=== PATIENT | male | born 1960 | race Caucasian/White ===

== ENCOUNTER → 2017-02-12 12:21 | Outpatient (CLI) | payer BC ==
[2016-09-25 08:00] VITALS: BMI 49.0
[~2017-02-12 12:21] MED LIST: ALDACTONE25 MG PO; ASPIRIN81 MG PO; CLARITIN10 MG/TAB PO; CYCLOBENZAPRINE10 MG PO; FUROSEMIDE40 MG PO; HEMOCYTE-F TABL1 TAB PO; IMDUR60 MG PO; K-DUR20 MEQ PO; KLOR-CON M2020 MEQ PO; NORCO 10/325 TA1 TA1 PO; NORCO 7.5/325 T1 TA1 PO; PLAVIX75 MG PO; PRAVACHOL20 MG PO; TOPROL XL50 MG PO; ZYLOPRIM100 MG PO
== END | disposition home or self-care (01) ==
LOC: D.US 01-15 13:30
DX: I65.23 Occlusion and stenosis of bilateral carotid arteries (principal)

== ENCOUNTER 2017-09-18 15:47 | Inpatient (IN) | payer BC ==
[~2017-09-18] VITALS: Ht 172.7 cm; Wt 150.0 kg
--- NOTE | ~2017-09-18 | HEMODYNAMI ---
PATIENT:CORDELL ELIZALDE MEDICAL RECORD: [id number] : 60 LOCATION:[facility] D.2[facility] [id number] ADMISSION DATE: 09/18/17 Generatedon:09/20/201712:23 Patient name: CORDELL ELIZALDE Patient #: [id number] SSN: D OB: 1960 Date of study: 09/20/2017 Page: Of Hemodynamic Procedure Report Patient Data Patient Demographics Procedure consent was obtained First Name: CORDELL Gender: Male Last Name: : 1960 Middle Initial: JOURDAN Age: 57 year(s) Patient #: [id number] Race: Unknown Additional ID: [id number] Contact details Address: [address] [address] State: [place] City: [place] Zip code: [address] Past Medical History Allergies Allergen Reaction Date Comments Reported Other allergy 09/20/2017 PCN, Pravastatin Admission Admission Data Admission Date: 09/18/2017 Admission Time: 15:47 Room #: 2122 Lab Results Lab Result Date: 09/18/2017 Lab Result Time: 16:45 Biochemistry Name Units Result Min Max BUN mg/dl 14 --(--*-)-- 7 18 Creatinine mg/dl 0.8 --(-*--)-- 0.6 1.3 CBC Name Units Result Min Max Hematocrit % 43.8 --(*---)-- 42 54 Hemoglobin g/dl 14.6 --(-*--)-- 13.5 17.5 Procedure Procedure Types Cath Procedure Diagnostic Procedure LHC LHC w/Coronaries w/Grafts Miscellaneous Procedures Moderate Sedation up to 15 minutes Procedure Description Procedure Date Procedure Date: 09/20/2017 Procedure Start Time: 12:10 Procedure End Time: 12:22 Procedure Staff Name Function Guru Pichardo MD Performing Physician Ricardo Harrison RT Monitor Cierra Mathias RT Scrub Rio Edgar RN Nurse Vickie Henson RN Computer Art Instructor Procedure Data Cath Procedure Fluoroscopy Diagnostic fluoroscopy Total fluoroscopy Time: 1.2 time: 1.2 min min Diagnostic fluoroscopy Total fluoroscopy dose: 234 dose: 234 mGy mGy Contrast Material Contrast Material Type Amount (ml) Isovue 300 38 Entry Location Entry Primary Successful Side Size Upsize Upsize Entry Closure Succes sful Closure Location (Fr) 1 (Fr) 2 (Fr) Remarks Device Remarks Femoral Right 5 Fr Exoseal artery Estimated blood loss: 5 ml Diagnostic catheters Device Type Used For End Catheter Placement MULTIPACK Pigtail 5 Fr Procedure catheter MULTIPACK 3DRC 5Fr Procedure catheter DIAGNOSTIC AR 2 MOD 5 Fr Procedure catheter ([id number]) Procedure Complications No complications Procedure Medications Medication Administration Route Dosage 0.9% NaCl I.V. 100 ml/hr Oxygen NC 2 l/min Heparin Flush Bag added to field 2 bags (1000units/500ml NS) Lidocaine 2% added to field 20 Versed I.V. 1 mg Fentanyl I.V. 50 mcg Hemodynamics Rest HGB: 14.6 (g/dl) Heart Rate: 54 (bpm) Snapshots Pre Cath Intra NCS Post Cath Vital Signs Time Heart Resp SPO2 etCO2 NIBP (mmHg) Rhythm Pain Sedation Rate (ipm) (%) (mmHg) Status Level (bpm) 11:55:30 56 14 90 47.5 137/85(100) NSR 0 (11) 10(A) , No pain 12:00:27 56 18 83 42.9 124/78(93) NSR 0 (11) 10(A) , No pain 12:05:24 56 17 92 46.7 131/68(97) NSR 0 (11) 10(A) , No pain 12:10:19 57 15 94 49.7 142/86(110) NSR 0 (11) 10(A) , No pain 12:15:16 53 14 95 39.2 145/94(106) NSR 0 (11) 10(A) , No pain 12:20:15 58 8 94 41.4 Measuring NSR 0 (11) 10(A) , No pain 12:20:17 58 8 94 37.6 130/81(105) NSR 0 (11) 10(A) , No pain Medications Time Medication Route Dose Verified Delivered Reason Notes Effe ctiveness by by 11:52:13 0.9% NaCl I.V. 100 Rio Rio Per ml/hr Herve Edgar physician RN RN 11:52:25 Oxygen NC 2 Iro Rio Per l/min Herve Edgar physician RN RN 11:52:41 Heparin Flush added 2 Rio Rio used for Bag to bags Lorigan Herve procedure (1000units/500ml field RN RN NS) 11:53:00 Lidocaine 2% added 20ml Rio Rio for local to vial Lorigan Lorigan anesthetic field RN RN 12:07:59 Versed I.V. 1 mg Rio Rio for Lorigan Lorigan sedation RN RN 12:08:20 Fentanyl I.V. 50 Rio Rio for mcg Lorigan Lorigan sedation RN belt loop maker Log Time Note 11:39:38 Informed consent obtained and on chart 11:40:20 Vickie Henson RN sent for patient. Start room use. 11:41:28 Time tracking: Regular hours 11:41:34 Plan of Care:Hemodynamics will remain stable., Cardiac rhythm will remain stable., Comfort level will be maintained., Respiratory function will remain adequate., Patient/ family verbilizes understanding of procedure., Procedure tolerated without complication., Recovers from procedure without complications.. 11:42:36 Patient received from Med II to CCL 1 Alert and oriented. Tansferred to table in Supine position. 11:42:37 Warm blankets applied, and jak hugger turned on for patient comfort. 11:42:38 Correct patient and procedure confirmed by team. 11:42:39 ECG and BP/O2 sat monitors applied to patient. 11:42:48 H&P Date Dictated: 09/18/2017 Within 30 days and on chart.. 11:44:11 Lab Result : BUN 14 mg/dl 11:44:11 Lab Result : Hemoglobin 14.6 g/dl 11:44:11 Lab Result : Creatinine 0.8 mg/dl 11:44:11 Lab Result : Hematocrit 43.8 % 11:44:13 Lab results completed and on chart. 11:44:20 Pre-procedure instructions explained to patient. 11:44:21 Pre-op teaching completed and patient verbalized understanding. 11:45:32 Family in waiting room. 11:45:35 Patient NPO since Midnight. 11:47:28 Patient allergic to Other allergyPCN, Pravastatin 11:47:34 Is the patient allergic to Iodine/contrast media? No. 11:47:38 Is patient on blood thinner?No 11:47:39 Patient diabetic? No. 11:47:43 Previous problem with sedation/anesthesia? No ? 11:47:44 Snore? Yes 11:47:45 Sleep apnea? Yes 11:47:46 Deviated septum? No 11:47:47 Opens mouth fully? Yes 11:47:48 Sticks out tongue? Yes 11:47:49 Airway obstruction? No ? 11:47:52 Dentures? Yes Out 11:52:13 0.9% NaCl 100 ml/hr I.V. was administered by Rio Edgar RN; Per physician; 11:52:25 Oxygen 2 l/min NC was administered by Rio Edgar RN; Per physician; 11:52:41 Heparin Flush Bag (1000units/500ml NS) 2 bags added to field was administered by Rio Edgar RN; used for procedure; 11:53:00 Lidocaine 2% 20ml vial added to field was administered by Rio Edgar RN; for local anesthetic; 11:53:04 Vital chart was started 11:56:47 Baseline sample Acquired. 11:56:57 Rhythm: sinus rhythm 11:57:00 Full Disclosure recording started 11:58:03 Pre procedure: right dorsailis pedis pulse 1+ Palpable, but thready & weak; easily obliterated 11:58:04 Patient pain scale 0/10 ?. 11:58:10 IV patent on arrival in right hand with 0.9% NaCl at KVO. 11:58:14 Lab results completed and on chart. 11:58:23 Right groin area was prepped with chlora-prep and draped in sterile fashion 11:58:25 Alarms reviewed by R. N. 11:58:26 Sharps counted by scrub and verified by R.N. 11:58:39 Use device set Femoral Dx 11:58:45 PERCUTANEOUS ENTRY 19GA needle opened to sterile field. 11:58:46 Tegaderm 4 x 4 (1626W) opened to sterile field. 11:58:49 ACIST Syringe (21251) opened to sterile field. 11:58:49 Bag Decanter () opened to sterile field. 11:58:50 Medline Cath Pack ([id number]) opened to sterile field. 11:58:51 Terumo 5Fr Madison Sheath opened to sterile field. 11:58:51 St Trent 260cm J .035 wire opened to sterile field. 11:58:54 ACIST Hand Control (46031) opened to sterile field. 11:58:54 ACIST Manifold (72968) opened to sterile field. 11:58:56 DIAGNOSTIC Multipack 5Fr catheter set ([id number]) opened to sterile field. 11:59:35 Zero performed for pressure channel P1 12:03:14 Physician paged 12:07:16 Physician arrived 12::17 --------ALL STOP TIME OUT------ 12:07:17 Final Timeout: patient, procedure, and site verified with staff and physician. All members of the team are in agreement. 12:07:19 Right groin site verified by team. 12:07:22 Physical assessment completed. ASA score P 2 - A patient with mild systemic disease as per Guru Pichardo MD. 12:07:30 Sedation plan: IV Moderate Sedation Medication:Versed, Fentanyl 12:07:59 Versed 1 mg I.V. was administered by Rio Edgar RN; for sedation; 12:08:20 Fentanyl 50 mcg I.V. was administered by Rio Edgar RN; for sedation; 12:10:52 Procedure started. 12:10:55 Local anesthetic to right femoral artery with Lidocaine 2% by Guru Pichardo MD.INITIAL ACCESS ONLY 12:11:03 A 5 Fr sheath was inserted into the Right Femoral artery 12:11:44 A MULTIPACK Pigtail 5 Fr catheter was advanced over the wire and used for Procedure. 12:12:05 LV gram done using CHANEL 12:12:07 Injector settings: Ml/sec: 10, Volume: 20, 12:12:12 EF : 50 % 12:12:17 Catheter exchanged over wire. 12:12:26 A MULTIPACK 3DRC 5Fr catheter was advanced over the wire and used for Procedure. 12:13:19 HERNANDEZ to LAD angiography performed. 12:13:57 Catheter exchanged over wire. 12:14:06 A DIAGNOSTIC AR 2 MOD 5 Fr catheter ([id number]) was advanced over the wire and used for Procedure. 12:14:57 SVG to Circ/OM angiography performed. 12:15:10 Catheter removed. 12:15:12 EXOSEAL 5Fr (EX500) opened to sterile field. 12:15:29 Sheath removed intact; hemostasis achieved with Exoseal to the Right Femoral artery. 12:15:31 Procedure ended.(Physican Out) 12:15:59 Fluoroscopy time 01.20 minutes. 12:16:03 Flurop Dose total: 234 12:16:03 Fluoroscopy dose: 234 mGy 12:18:02 Contrast amount:Isovue 300 38ml. 12:19:07 Sharps counted by scrub and verified by R.N. 12:19:10 Insertion/operative site no bleeding no hematoma. 12:19:12 Post-op/insertion site Right Femoral artery dressed using a 4 x 4 and Tegaderm. 12:19:22 Post right femoral artery:stable, soft, clean and dry 12:21:10 Post Procedure Pulses reassessed and unchanged 12:21:12 Post-procedure physical assessment completed. ASA score P 2 - A patient with mild systemic disease as per Guru Pichardo MD. 12:21:15 Post procedure rhythm: unchanged. 12:21:17 Estimated blood loss: 5 ml 12:21:19 Post procedure instruction explained to patient.Patient verbalizes understanding. 12:21:21 Patient needs reinforcement of post procedure teaching. 12:22:05 Procedure type changed to Cath procedure, Diagnostic procedure, LHC, LHC w/Coronaries w/Grafts, Miscellaneous Procedures, Moderate Sedation up to 15 minutes 12:22:22 Procedure and supply charges have been captured, reviewed, submitted and are correct. 12:22:24 Procedure Complication : No complications 12:22:26 Vital chart was stopped 12:22:27 See physician's report for complete and final results. 12:22:28 Report given to PCU. 12:22:47 Patient transfered to PCU with Stretcher. 12:22:51 Procedure ended. 12:22:51 Full Disclosure recording stopped 12:22:56 End room use (Document Last) Device Usage Item Name Manufacture Quantity Catalog Hospital Part Current Minimal Lot# / Number Charge Number Stock Stock Serial# Code PERCUTANEOUS Cook Medical 1 [id number] [id number] 5 ENTRY 19GA needle Tegaderm 4 x 3M 1 1626W 160562 486460 711949 5 4 (1626W) ACIST Acist 1 86785 546232 746774 742891 20 Syringe Exchangery (79826) Systems Inc Bag Decanter Microtek 1 989550 97047 967121 5 () Medical Inc. Medline Cath Cardinal 1 [id number] 425814 46415 804729 5 Pack Health ([id number]) Terumo 5Fr Terumo 1 WSC977 541249 217076 842656 [address] St Trent 1 276034 674307 727240 092685 30 260cm J .035 wire ACIST Hand Acist 1 91297 084308 221939 726687 5 Control Medical (45914) Systems Inc ACIST Acist 1 99357 424931 826332 232790 5 Manifold Medical (78630) Systems Inc DIAGNOSTIC Cardinal 1 OI2900 658797 83277 054398 30 Multipack Health 5Fr catheter set (UB4876) MULTIPACK Cardinal 1 623118 5 Pigtail 5 Fr Health catheter MULTIPACK Cardinal 1 216280 5 3DRC 5Fr Health catheter DIAGNOSTIC Cardinal 1 [id number] 354756 553669 680560 20 AR 2 MOD 5 Health Fr catheter (380355M) EXOSEAL 5Fr Cardinal 1 EX500 019518 873718 878940 10 (EX500) Health Signature Audit [place] Stage Time Signature Unsigned Intra-Procedure 09/20/2017 Ricardo Harrison 12:23:16 PM RT(R) Signatures Monitor : Ricardo Harrison RT Signature : Date : Time : [address] [place] [address]
--- NOTE | 2017-09-18 16:44 | NUR ---
RECEIVED PT TO ROOM 2121 FROM ADMISSIONS AMBULATING SOB NOTED EDEMA NOTED TO BLEs SALINE LOCK SITED TO RT HAND WITH 22 GA IV CATHETER X1 STICK USING ASEPTIC TECHNIQUE NAD NOTED
[2017-09-18 16:49] LABS: BASOPHILS 0.7 % (0-2); EOSINOPHILS 2.4 % (0-7); HEMATOCRIT 43.8 % (42.0-54.0); HEMOGLOBIN 14.6 g/dL (13.5-17.5); IMMATURE GRANULOCYTES 0.2 % (0-5); LYMPHOCYTES 40.7 % (15-50); MCH 33.1 pg (26.0-34.0); MCHC 33.3 g/dL (31.0-37.0); MCV 99.3 fL (80.0-100.0); MEAN PLATELET VOLUME 10.6 fL (7.4-10.4); MONOCYTES 9.6 % (2-11); NEUTROPHILS 46.4 % (40-80); PLATELET COUNT 191 10x3/uL (130-400); RBC 4.41 10x6/uL (4.20-6.10); RDW 16.8 % (11.5-14.5); WBC 5.4 10x3/uL (4.8-10.8)
[2017-09-18 17:12] LABS: CALC OSMOLALITY 274 mosm/kg (275-300); CALCIUM 8.7 mg/dL (8.5-10.1); CARBON DIOXIDE 27.4 mmol/L (21.0-32.0); CHLORIDE - SERUM 101 mmol/L (98-107); CREATININE - SERUM 0.8 mg/dL (0.6-1.3); GLUCOSE 95 mg/dL (74-106); POTASSIUM - SERUM 4.9 mmol/L (3.5-5.1); SODIUM 137 mmol/L (136-145); UREA NITROGEN 14 mg/dL (7-18); eGFR NON AFRICAN AMERICAN > 90 mL/min (90-120)
[2017-09-18 17:16] LABS: TROPONIN-I < 0.017 ng/mL (0.000-0.060)
[2017-09-18] MEDS ORDERED: NEURONTIN 300300 MG PO (18:33)
[2017-09-18] MEDS ORDERED: ZANAFLEX4 MG PO (18:34)
[2017-09-18] MEDS ORDERED: TYLENOL W/CODEI1 TAB PO (18:35)
[2017-09-18] MEDS ORDERED: FLUTICASONE PRO16 GM NASAL (18:39)
[2017-09-18 19:30] VITALS: BP 167/90; BMI 51.6
[2017-09-18 20:00] VITALS: BP 172/81
--- NOTE | 2017-09-18 20:00 | NUR ---
PT SITTIN UP IN BED FAMILY AT BEDSIDE. PT STATED " I TOOK ONE OF MY GABAPENTIN, TIZANITIDINE, AND CODIENE PILLS BECAUSE I WAS IN PAIN JUST NOW" PT HAD MEDICATION WITH HIM.
[2017-09-19 01:11] VITALS: BP 115/53
--- NOTE | 2017-09-19 01:56 | NUR ---
PT SITTING UP ON SIDE OF BED USING CELL PHONE. DENIES NEEDS AT THIS TIME.
--- NOTE | 2017-09-19 04:01 | NUR ---
PT RESTING COMFORTABLY AT THIS TIME, ALERT AND ORIENTED. CONTINUE TO MONITOR CLOSELY.
[2017-09-19 04:29] VITALS: BP 127/56
--- NOTE | 2017-09-19 07:23 | NUR ---
AM ROUNDS PT IN BED, A/O, RESP EVEN AND UNLABORED, LT HAND IV SL. PT DENIES ANY NEEDS AT THIS TIME. CALL LIHGT IN REACH, NAD NOTED, WILL CONTINUE PLAN OF CARE.
[2017-09-19 07:31] VITALS: BP 137/58
--- NOTE | 2017-09-19 09:07 | NUR ---
SPOKE WITH DR. EGAN, ASKED HIM IF PT COULD HAVE DIET ORDER OR PT NEEDED TO BE NPO. DR. EGAN STATED THAT PT COULD EAT.
[2017-09-19 10:58] VITALS: BP 139/53
[2017-09-19 13:00] VITALS: Ht 172.7 cm; Wt 150.0 kg
--- NOTE | 2017-09-19 14:31 | NUR ---
PAGED DR. EGAN, INFORMED HIM THAT PT IS ASKING ABOUT HIS HOME MEDICATIONS, AND THAT HE IS GETTING 80MG OF LASIX AND THERE IS NO ORDER FOR K. DR. EGAN STATED TO START ALL HOME MEDS.
[2017-09-19 15:12] VITALS: BP 139/61
--- NOTE | 2017-09-19 15:27 | NUR ---
PT UP TO SIDE OF BED, DENIES ANY NEEDS AT THIS TIME. CALLL KRISTINT IN REACH, NAD NOTED, WILL CONTINUE PLAN OF CARE.
--- NOTE | 2017-09-19 19:56 | NUR ---
PAINTER SUPERVISOR REPORTED PTS O2 SAT @ 87% ON ROOM AIR, ALONG WITH A B/P OF 111/48. PT IS AWAKE, ALERT, ORIENTED, AND SITTING UP IN CHAIR AT THIS TIME. PT DENIES ANY INCREASED SOB, CHEST PAIN, OR ANYTHING UNUSUAL FROM PREVIOUS SYMPTOMS. IS AT BEDSIDE. I RECHECKED PTS O2 WHICH ALSO SHOWED A SAT OF 87% SO I HAVE PLACED PT ON 2 LPM O2 VIA NC. WHEN RECHECKED, HIS O2 WAS 93%. I EXPLAINED TO PT THAT WE WILL NEED TO LEAVE THE O2 ON FOR NOW, HE IS IN AGREEMENT. NO OTHER NEEDS AT THIS TIME. WILL CONTINUE TO MONITOR CLOSELY.
[2017-09-19 21:32] VITALS: BP 111/47
--- NOTE | 2017-09-19 22:54 | NUR ---
PT RESTING COMFORTABLY, CPAP FROM HOME ON, O2 VIA NC STILL IN PLACE @ 2LPM. CONTINUE TO MONITOR CLOSELY.
--- NOTE | 2017-09-20 01:31 | NUR ---
PT AWAKE, ALERT, ORIENTED, SITTING ON BEDSIDE DENIES ANY NEEDS. CONTINUE TO MONITOR CLOSELY.
[2017-09-20 02:21] VITALS: BP 114/56
[2017-09-20 06:19] VITALS: BP 134/69
[2017-09-20 07:42] VITALS: BP 137/62
[2017-09-20 11:02] LABS: BASOPHILS 0.5 % (0-2); EOSINOPHILS 2.3 % (0-7); HEMATOCRIT 42.6 % (42.0-54.0); IMMATURE GRANULOCYTES 0.2 % (0-5); LYMPHOCYTES 33.6 % (15-50); MCH 32.7 pg (26.0-34.0); MCHC 32.9 g/dL (31.0-37.0); MCV 99.5 fL (80.0-100.0); MEAN PLATELET VOLUME 9.8 fL (7.4-10.4); MONOCYTES 9.2 % (2-11); NEUTROPHILS 54.2 % (40-80); PLATELET COUNT 196 10x3/uL (130-400); RBC 4.28 10x6/uL (4.20-6.10); RDW 16.5 % (11.5-14.5); WBC 5.7 10x3/uL (4.8-10.8)
[2017-09-20 11:16] LABS: CALC OSMOLALITY 270 mosm/kg (275-300); CALCIUM 8.9 mg/dL (8.5-10.1); CARBON DIOXIDE 31.6 mmol/L (21.0-32.0); CHLORIDE - SERUM 97 mmol/L (98-107); CREATININE - SERUM 0.9 mg/dL (0.6-1.3); GLUCOSE 100 mg/dL (74-106); SODIUM 135 mmol/L (136-145); UREA NITROGEN 15 mg/dL (7-18); eGFR NON AFRICAN AMERICAN > 90 mL/min (90-120)
[2017-09-20 11:17] LABS: POTASSIUM - SERUM 4.1 mmol/L (3.5-5.1)
--- NOTE | 2017-09-20 11:46 | NUR ---
TELEMETRY SR. PRE-OPS GIVEN. LEAVING FOR WATER POLLUTION SPECIALIST BY BED.
[2017-09-20 12:00] VITALS: BP 111/58
--- NOTE | 2017-09-20 12:48 | NUR ---
BACK FROM LITHOGRAPH DESIGNER. VS WNL. RIGHT GROIN STABLE WITHOUT BLEEDING OR HEMATOMA NOTED. WILL MONITOR.
--- NOTE | 2017-09-20 14:40 | NUR ---
BED REST UP. GROIN STABLE.
[2017-09-20 15:39] VITALS: BP 122/63
--- NOTE | 2017-09-20 20:46 | NUR ---
PT AWAKE, ALERT, ORIENTED, WALKING AROUND OUTSIDE HIS ROOM TO STRETCH. PT STATES HE HAS TOLERATED HIS CARDIAC CATH TODAY, NO NEEDS. CONTINUE TO MONITOR CLOSELY.
--- NOTE | 2017-09-20 20:54 | NUR ---
PT HAD TAKEN HIS O2 OFF TO AMBULATE, AND WHEN CHECKED, HIS O2 ON ROOM AIR WAS 85%. I HAVE PLACED PTS O2 VIA NC BACK ON, WHEN RECHECKED HIS O2 WAS 93% ON 2LPM. I HAVE ENCOURAGED PT TO LEAVE THE NC ON AND WILL RECHECK WITH NEXT V/S AND PRN. CONTINUE TO MONITOR CLOSELY.
[2017-09-20 21:12] VITALS: BP 113/65
[2017-09-21 01:05] VITALS: BP 122/55
--- NOTE | 2017-09-21 01:34 | NUR ---
PT RESTING COMFORTABLY, NO NEEDS. CONTINUE TO MONITOR CLOSELY.
[2017-09-21 05:22] VITALS: BP 133/76
[2017-09-21 08:33] VITALS: BP 107/43
--- NOTE | 2017-09-21 09:49 | NUR ---
TELEMETRY SR. UP AMBULATING HALLWAY. GAIT STEADY.
[2017-09-21 12:50] VITALS: BP 120/47
--- NOTE | 2017-09-21 13:08 | HP ---
PATIENT: CORDELL ELIZALDE MEDICAL RECORD: [id number] ACCOUNT: [id number] LOCATION:D. D.2121 : 60 ADMISSION DATE: 09/18/17 HISTORY AND PHYSICAL EXAMINATION DIAGNOSES: 1. Lower extremity edema. 2. Shortness of breath. 3. Coronary artery disease. 4. Angina. 5. Status post coronary bypass graft surgery. 6. Hypertension. 7. Obesity. HISTORY OF PRESENT ILLNESS: This is a gentleman with a past history of coronary artery disease, status post coronary bypass graft surgery in 2012. Last cardiac catheterization in 2016 showed closure of the right coronary graft. He was doing well until last week. He began having increasing lower extremity edema, shortness of breath, and anginal chest discomfort. He is markedly fluid overloaded and at this time with 4+ pitting edema. This is a definite change for him. He has been on Lasix 80 mg a day, he doubled this to 80 mg b.i.d. Still having the lower extremity edema. PHYSICAL EXAMINATION: GENERAL APPEARANCE: Well-nourished, well-developed, appears stated age. Level of distress, comfortable. PSYCHIATRIC: Mental status, alert, normal affect. Orientation, oriented to time, place and person. EYES: Lids and conjunctiva, noninjected. No discharge, no pallor. ENT: Lips, teeth, gums, normal dentition. Oropharynx, no cyanosis, no pallor. NECK: Carotid arteries, bilateral normal upstroke, no bruits, no thrills. JUGULAR VEINS: No jugular venous pressure or distention. CERVICAL LYMPH NODES: Nontender, nonenlarged. THYROID: Not enlarged. Nontender. No nodules. LUNGS: Respiratory effort, unlabored. CHEST: Normal curvature. No thoracic deformity. No chest wall tenderness. Percussion, resonant. Auscultation, clear. No wheezes, no rales, no rhonchi. CARDIOVASCULAR: Precordial exam, nondisplaced. No heaves or pericardial thrills. Rate and rhythm, regular. Heart sounds, normal S1, normal S2. No S3, no gallop, no rub. Systolic murmur, not heard. Diastolic murmur, not heard. EXTREMITIES: No cyanosis, no edema. Peripheral pulses, full and equal in all extremities, except as noted. No bruits appreciated. ABDOMEN: Soft, nondistended. Normal aorta. No bruit. Nontender. No masses. Liver, nontender, no hepatomegaly. Spleen, nontender, no splenomegaly. MUSCULOSKELETAL: No joint tenderness. No joint swelling. No erythema. NEUROLOGICAL: Normal gait, normal strength, normal tone. SKIN: Warm and dry. OVERALL IMPRESSION: Worsening of his anginal symptomatology with marked fluid overload. In the past, he has had a normal ejection fraction. We will admit, give IV Lasix, get an echocardiogram. Most likely proceed with coronary angiography in the near future as well. TRANSINT:[id number] Voice Confirmation ID: [id number] DOCUMENT ID: [id number] HISTORY AND PHYSICAL [id number] CORDELL ELIZALDE JEFFREY MD at 1308 CC: [id number] DICTATION DATE: 09/18/17 1525 SCHOOL LUNCH MANAGER: 09/18/17 1537 ADM IN [facility] [address] [place] [address]
--- NOTE | 2017-09-21 13:08 | OP ---
PATIENT NAME: CORDELL ELIZALDE MEDICAL RECORD: [id number] :60 LOCATION:D.M2 D.2122 ADMISSION DATE:09/18/17 SURGEON: KRISH EGAN MD DATE OF OPERATION: 09/20/2017 PROCEDURES: 1. Left heart catheterization. 2. Selective coronary angiography. 3. Vein graft angiography. 4. HERNANDEZ angiography. 5. Left ventriculogram. INDICATION: Congestive heart failure, angina. PROCEDURE IN DETAIL: After informed consent was obtained and after a detailed explanation of the risks, benefits as well as alternative therapies, the patient elected to proceed with angiogram. The right femoral area was prepped and draped in normal sterile fashion. The right femoral artery was cannulated via modified Seldinger technique with placement of 5-Yemeni sheath. All catheters exchanged through this sheath. FINDINGS: Left ventriculogram was performed in standard 30-degree CHANEL view, reveals preserved cardiac wall motion, ejection fraction 45% to 50%. SELECTIVE CORONARY ANGIOGRAPHY: 1. Left main showed no significant angiographic disease. 2. Left main is closed. 3. Right coronary is closed. 4. HERNANDEZ to the LAD is widely patent. Distal LAD is widely patent. 5. Vein graft to the circumflex is widely patent. The distal circumflex is widely patent. Vein graft to the right coronary is closed. OVERALL IMPRESSION: Wide patency of the HERNANDEZ to the LAD, wide patency of the vein graft to the circumflex is unchanged from previous angiography. Continue medical management of the coronary artery disease and cardiac risk factors. TRANSINT:[id number] Voice Confirmation ID: [id number] DOCUMENT ID: [id number] KRISH EGAN MD at 1308 CC: [id number] DICTATION DATE: 09/20/17 1221 INDUSTRIAL AUTOMATION ENGINEER: 09/20/17 1428 ADM IN [facility] [address] [place] [address]
[2017-09-21] MEDS ORDERED: BUMEX2 MG PO (14:25)
--- NOTE | 2017-09-21 16:09 | NUR ---
IV AND TELEMETRY DCD. DC PLANS GIVEN. UNDERSTANDING VOICED. ESCORTED TO CAR BY W/C.
--- NOTE | 2017-09-21 19:36 | NUR ---
Patient Name: CORDELL ELIZALDE Admission Status: Elective Accout number: [id number] Admission Date: 09-18-2017 : 1960 Admission Diagnosis:SHORTNESS OF BREATH Attending: AMITA EGAN Current LOS: 3 Anticipated DC Date: 09-21-2017 Planned Disposition: Home Primary Insurance: enEvolv OUT OF STATE Discharge Planning Comments: * Is the patient Alert and Oriented? Yes 0 * How many steps to enter\exit or inside your home? 7-8 0 * PCP DR. KIMBROUGH 0 * [facility] [address] * Preadmission Environment Home with Family 0 * ADLs Independent 0 * Equipment CPAP 0 * Other Equipment [facility] - MEDICAL EQUIPMENT PROVIDER PREFERENCE 0 * List name and contact numbers for known caregivers / representatives who currently or will assist patient after discharge: WALTER ELIZALDE, SPOUSE, 0 * Community resources currently utilized None 0 * Please name any agencies selected above. NONE 0 * Additional services required to return to the preadmission environment? No 0 * Can the patient safely return to the preadmission environment? Yes 0 * Has this patient been hospitalized within the prior 30 days at any hospital? No 0 CM MET WITH PT IN ROOM TO DISCUSS DISCHARGE PLANNING AND NEEDS. PT REPORTS LIVING AT HOME INDEPENDENTLY WITH SPOUSE. [facility] AND NO OUTSIDE SERVICES ASSISTING IN THE HOME. CM DISCUSSED AVAILABILITY OF HOME HEALTH, REHAB SERVICES AND MEDICAL EQUIPMENT. PT DENIES DISCHARGE NEEDS, REPORTS HIS SPOUSE WILL PICK HIM UP FOR DISCHARGE HOME. IMPORTANT MESSAGE FROM MEDICARE PROVIDED AND EXPLAINED. Carburizer: Bonilla Lewis
--- NOTE | 2017-10-02 12:14 | EC ---
PATIENT:CORDELL ELIZALDE DATE OF SERVICE: 09/18/17 SEX: M MEDICAL RECORD: [id number] DATE OF : 60 LOCATION:D. D.212 AGE OF PATIENT: 57 ADMISSION DATE: 09/18/17 REFERRING PHYSICIAN: INTERPRETING PHYSICIAN: KRISH PICHARDO MD ECHOCARDIOGRAM REPORT ECHO CHARGES 4 ECHO COMPLETE CLINICAL DIAGNOSIS: CHF ECHOCARDIOGRAPHIC MEASUREMENTS (adult normal given) AC root (d.<3.7cm) 3.5 cm LV Septum d (<1.2 cm> 1.6 cm Valve Excursion 2.3 cm LV Septum (systole) 2.1 cm Left Atria (s.<4.0cm> 4.4 cm LVPW d(<1.2cm) 1.3 cm RV (d.<2.3cm) 3.3 cm LVPW (sytole) 1.8 cm LV diastole(<5.6CM) 5.0 cm MV E-F(>70mm/sec) cm LV systole 3.1 cm LVOT Diameter 2.1 cm MV exc.(>10mm) cm Est.ejection fraction (50-75%) % Pericardial Effusion N DOPPLER: LVIT cm/sec A 61.0 cm/sec E 115 cm/sec LA cm/sec RVSP 21.3 mmHg LVOT 117 cm/sec AOP1/2T m/s Asc. Ao 149 cm/sec RVOT 64.0 cm/sec RA cm/sec PA 98.0 cm/sec AV Gradient Peak 8.9 mmHg AV Mean 5.1 mmHg AV Area 3.0 cm MV Gradient Peak 6.2 mmHg MV Mean 2.1 mmHg MV Area cm COMMENTS: Coroner Forensic Technician: Lillian REALOE Dentist: 1 Dr. Pichardo TAPE# PACS DATE OF SERVICE: 09/19/2017 DATE OF SERVICE: 09/19/2017 ECHOCARDIOGRAM FINDINGS: 1. Left ventricular chamber size is within normal limits. Left ventricular systolic function is preserved at 50%. 2. The left atrium is mildly dilated at 4.4 cm. Right atrium and right ECHOCARDIOGRAM REPORT [id number] CORDELL ELIZALDE ventricle chamber sizes are upper limits of normal. 3. Valvular structures have normal structure and motion. 4. Doppler interrogation only reveals trace mitral regurgitation. No other valvular insufficiency or stenosis. Pulmonary systolic pressure is estimated at 21 mmHg. 5. No evidence of pericardial effusion or left ventricular thrombus. TRANSINT:[id number] Voice Confirmation ID: [id number] DOCUMENT ID: [id number] KRISH PICHARDO MD at 1214 CC: [id number] DICTATION DATE: 09/20/17 1238 DRAY DRIVER: 09/20/17 1443 DIS IN 09/21/17 [id number] [place] [id number]
--- NOTE | 2017-11-30 18:00 | DS ---
PATIENT:CORDELL ELIZALDE :60 MEDICAL RECORD: [id number] DISCHARGE SUMMARY ADMISSION DATE: 09/18/17 DISCHARGE DATE: 09/21/17 DIAGNOSES: 1. Chest pain compatible with angina. 2. Normal cardiac catheterization. 3. Shortness of breath. 4. Mild cardiomyopathy, ejection fraction 45%. HOSPITAL COURSE: This is a gentleman who presents with shortness of breath and chest pain, underwent diuresis, shortness of breath improved. He underwent cardiac catheterization, no CAD was found. Ejection fraction was in the 45% to 50% range. He was discharged home with the addition of Lasix to his medical regimen. He will follow up with [facility] in 1 month. TRANSINT:[id number] Voice Confirmation ID: [id number] DOCUMENT ID: [id number] KRISH EGAN MD at 1800 CC: [id number] DICTATION DATE: 11/26/17 1057 CORPORATE PLANNING MANAGER: 11/26/17 1453 DIS IN 09/21/17 [id number] [place] [address]
== END 2017-09-21 16:10 | disposition home or self-care (01) | DRG 287 ==
LOC: D.M2 15:47
PROVIDERS: ADMIT Internal Medicine Interventional Cardiology
PROC: B2181ZZ Fluoroscopy of Left Internal Mammary Bypass Graft using Low Osmolar Contrast (ICD-10-PCS; 2017-09-20)
PROC: B2151ZZ Fluoroscopy of Left Heart using Low Osmolar Contrast (ICD-10-PCS; 2017-09-20)
PROC: 4A023N7 Measurement of Cardiac Sampling and Pressure, Left Heart, Percutaneous Approach (ICD-10-PCS; 2017-09-20)
PROC: B2111ZZ Fluoroscopy of Multiple Coronary Arteries using Low Osmolar Contrast (ICD-10-PCS; principal; 2017-09-20 12:00)
DX: I25.10 Atherosclerotic heart disease of native coronary artery without angina pectoris (principal); Z68.43 Body mass index [BMI] 50.0-59.9, adult; E66.9 Obesity, unspecified; Z95.1 Presence of aortocoronary bypass graft; I51.89 Other ill-defined heart diseases; I10 Essential (primary) hypertension

== ENCOUNTER 2017-09-28 06:05 | Emergency (ER) | payer BC ==
[2017-09-19 13:00] VITALS: BMI 50.3
[~2017-09-28 06:05] MED LIST changes: +BUMEX2 MG PO; +FLUTICASONE PRO16 GM NASAL; +NEURONTIN 300300 MG PO; +TYLENOL W/CODEI1 TAB PO; +ZANAFLEX4 MG PO
[2017-09-28 07:13] LABS: BASOPHILS 1.1 % (0-2); EOSINOPHILS 1.8 % (0-7); HEMATOCRIT 43.7 % (42.0-54.0); HEMOGLOBIN 14.7 g/dL (13.5-17.5); IMMATURE GRANULOCYTES 0.2 % (0-5); LYMPHOCYTES 31.7 % (15-50); MCH 33.1 pg (26.0-34.0); MCHC 33.6 g/dL (31.0-37.0); MCV 98.4 fL (80.0-100.0); MEAN PLATELET VOLUME 9.9 fL (7.4-10.4); MONOCYTES 10.4 % (2-11); NEUTROPHILS 54.8 % (40-80); PLATELET COUNT 189 10x3/uL (130-400); RBC 4.44 10x6/uL (4.20-6.10); RDW 16.5 % (11.5-14.5); WBC 4.5 10x3/uL (4.8-10.8)
[2017-09-28 07:25] LABS: ALBUMIN 3.9 g/dL (3.4-5.0); ALKALINE PHOSPHATASE 83 U/L (46-116); ALT (SGPT) 35 U/L (10-68); BILIRUBIN - TOTAL 0.67 mg/dL (0.2-1.3); C-REACTIVE PROTEIN 2.2 mg/dL (0.0-0.9); CALC OSMOLALITY 278 mosm/kg (275-300); CALCIUM 9.5 mg/dL (8.5-10.1); CARBON DIOXIDE 28.9 mmol/L (21.0-32.0); CHLORIDE - SERUM 101 mmol/L (98-107); GLUCOSE 97 mg/dL (74-106); POTASSIUM - SERUM 4.2 mmol/L (3.5-5.1); PROTEIN - SERUM 8.4 g/dL (6.4-8.2); SODIUM 140 mmol/L (136-145); UREA NITROGEN 13 mg/dL (7-18); eGFR NON AFRICAN AMERICAN 82 mL/min (90-120)
[2017-09-28 07:28] LABS: INR 1.05 (0.85-1.17); PROTIME 13.3 SECONDS (11.6-15.0)
[2017-09-28 07:29] LABS: APTT 30.8 SECONDS (22.8-39.4)
== END 2017-09-28 11:11 | disposition home or self-care (01) ==
LOC: D.ER 06:05
PROVIDERS: Emergency Medicine
DX: H54.62 Unqualified visual loss, left eye, normal vision right eye (principal); I10 Essential (primary) hypertension

== ENCOUNTER → 2018-04-16 12:54 | Outpatient (CLI) | payer BC ==
[2017-09-19 13:00] VITALS: BMI 50.3
== END | disposition home or self-care (01) ==
LOC: D.US 12:54
DX: I65.23 Occlusion and stenosis of bilateral carotid arteries (principal)

== ENCOUNTER → 2019-04-01 09:39 | Outpatient (CLI) | payer BC ==
[2017-09-19 13:00] VITALS: BMI 50.3
== END | disposition home or self-care (01) ==
LOC: D.US 09:39
PROVIDERS: ATTEND Internal Medicine Cardiovascular Disease
DX: I65.23 Occlusion and stenosis of bilateral carotid arteries (principal)

== ENCOUNTER → 2020-04-01 09:30 | Outpatient (CLI) | payer BC ==
[2017-09-19 13:00] VITALS: BMI 50.3
== END | disposition home or self-care (01) ==
LOC: D.US 09:30
PROVIDERS: ATTEND Internal Medicine Cardiovascular Disease
DX: I65.23 Occlusion and stenosis of bilateral carotid arteries (principal)